=== PATIENT | female | born 1990 | race Caucasian/White ===

== ENCOUNTER 2020-05-04 07:11 | Emergency (ER) | payer BC ==
[~2020-05-04] VITALS: Ht 170.2 cm; Wt 53.4 kg
--- NOTE | 2020-05-04 07:30 | NUR ---
Patient brought back from Triage with spouse at bedside. Patient here for bilateral ear pain, started 6 days ago in right ear and spread to left ear last night. Patient also c/o of some numbness and tingling in the back of her neck, nausea but denies vomiting. Patient also mentioned she is 8 days late from starting her period and could possibly be , provider notified. Patient is A&Ox4, vital signs stable.
--- NOTE | 2020-05-04 07:46 | NUR ---
PT TO IMAGING.
[2020-05-04] MEDS ORDERED: DIPHENHYDRAMINE 50 MG/ML, 1ML ONE (07:54)
[2020-05-04] MEDS ORDERED: METOCLOPRAMIDE 5 MG/ML, 2ML ONE (07:54)
[2020-05-04] MEDS ORDERED: METOCLOPRAMIDE 5 MG/ML, 2ML IVPush ONE (08:00)
[2020-05-04] MEDS ORDERED: SODIUM CHLORIDE FLUSH 10ML SYR IVF ONE (08:00)
[2020-05-04] MEDS ORDERED: DIPHENHYDRAMINE 50 MG/ML, 1ML IVPush ONE (08:00)
--- NOTE | 2020-05-04 08:16 | NUR ---
22 gauge IV inserted Right AC, labs drawn and handed to garage laborer. IV Benadryl and IV Reglan given. Ice water provided, no further needs at this time.
[2020-05-04 08:17] LABS: BASOPHILS # (AUTO) 0.04 x10^3/uL (0-0.1); BASOPHILS % (AUTO) 1 % (0-1); EOSINOPHILS # (AUTO) 0.14 x10^3/uL (0-0.4); EOSINOPHILS % (AUTO) 2 % (1-7); LYMPHOCYTES # (AUTO) 2.06 x10^3/uL (1-3.4); LYMPHOCYTES % (AUTO) 32 % (22-44); MD NO; MEAN CORPUSCULAR HEMOGLOBIN 30.2 pg (27.0-34.8); MEAN CORPUSCULAR HGB CONC 32.4 g/dL (32.4-35.8); MEAN CORPUSCULAR VOLUME 93.2 fL (80-100); MEAN PLATELET VOLUME 7.7 fL (7.4-10.4); MONOCYTES # (AUTO) 0.62 x10^3/uL (0.2-0.8); MONOCYTES % (AUTO) 10 % (2-9); NEUTROPHILS # (AUTO) 3.56 x10^3/uL (1.8-6.8); NEUTROPHILS % (AUTO) 56 % (42-75); PLATELET COUNT 272 x10^3/uL (130-400); RED BLOOD COUNT 4.55 x10^6/uL (3.82-5.3); RED CELL DISTRIBUTION WIDTH 13.2 % (9.6-15.2)
[2020-05-04 08:27] LABS: ALBUMIN 4.4 g/dL (3.4-5.0); ANION GAP 4 mmol/L (5-15); CALCIUM 9.5 mg/dL (8.5-10.1); CHLORIDE 111 mmol/L (98-107)
[2020-05-04] MEDS ORDERED: KETOROLAC 30 MG/1 ML ONE (08:43)
[2020-05-04] MEDS ORDERED: KETOROLAC 30 MG/1 ML IVPush ONE (09:00)
--- NOTE | 2020-05-04 09:00 | NUR ---
Patient and spouse given discharge instructions and they have confirmed that they understand the instructions. Patient ambulatory with steady gait. IV removed with tip intact, patient and spouse walked to discharge desk.
[2020-05-04 09:01] VITALS: BP 94/65
== END 2020-05-04 09:04 | disposition home or self-care (01) ==
LOC: ED 07:41
DX: R51 Headache (principal); H92.03 Otalgia, bilateral
CPT/HCPCS: 36415; 70450; 80048; 82040; 84703; 85025; 96374; 96375; 99284; J1200; J1885; J2765

== ENCOUNTER 2020-06-26 06:50 | Emergency (ER) | payer BC ==
[~2020-06-26] VITALS: Ht 170.2 cm; Wt 50.1 kg
[2020-06-26 06:55] VITALS: BP 111/75
[2020-06-26] MEDS ORDERED: MAALOX/HYOSCYAMINE/LIDOCAINE 45 ML BTL ONE (07:22)
[2020-06-26] MEDS ORDERED: LORazepam 1MG TABLET ONE (07:22)
[2020-06-26] MEDS ORDERED: LORazepam 1MG TABLET PO ONE (07:30)
[2020-06-26] MEDS ORDERED: MAALOX/HYOSCYAMINE/LIDOCAINE 45 ML BTL PO ONE (07:30)
--- NOTE | 2020-06-26 07:30 | NUR ---
PT MEDICATED PER MAR. PT VERY ANXIOUS DURING LAB DRAW. CALMED PT ABLE
[2020-06-26 07:36] LABS: BASOPHILS # (AUTO) 0.03 x10^3/uL (0-0.1); BASOPHILS % (AUTO) 0 % (0-1); EOSINOPHILS # (AUTO) 0.07 x10^3/uL (0-0.4); EOSINOPHILS % (AUTO) 1 % (1-7); LYMPHOCYTES % (AUTO) 15 % (22-44); MD NO; MEAN CORPUSCULAR HEMOGLOBIN 30.2 pg (27.0-34.8); MEAN CORPUSCULAR HGB CONC 32.4 g/dL (32.4-35.8); MEAN PLATELET VOLUME 7.6 fL (7.4-10.4); MONOCYTES # (AUTO) 0.64 x10^3/uL (0.2-0.8); MONOCYTES % (AUTO) 8 % (2-9); NEUTROPHILS # (AUTO) 6.13 x10^3/uL (1.8-6.8); NEUTROPHILS % (AUTO) 76 % (42-75); PLATELET COUNT 259 x10^3/uL (130-400); RED BLOOD COUNT 4.52 x10^6/uL (3.82-5.3); RED CELL DISTRIBUTION WIDTH 13.5 % (9.6-15.2)
[2020-06-26 07:48] LABS: ALANINE AMINOTRANSFERASE 19 U/L (12-78); ALBUMIN 4.1 g/dL (3.4-5.0); ANION GAP 8 mmol/L (5-15); CHLORIDE 114 mmol/L (98-107); CREATININE 0.97 mg/dL (0.55-1.02)
[2020-06-26 07:50] LABS: ALKALINE PHOSPHATASE 46 U/L (45-117); BILIRUBIN,TOTAL 0.4 mg/dL (0.2-1.0); TOTAL PROTEIN 7.3 g/dL (6.4-8.2)
== END 2020-06-26 09:43 | disposition home or self-care (01) ==
LOC: ED 07:32
DX: F41.1 Generalized anxiety disorder (principal); R10.13 Epigastric pain; R07.89 Other chest pain
CPT/HCPCS: 36415; 80053; 85025; 93005; 99284